=== PATIENT | male | born 1985 | race Caucasian/White ===

== ENCOUNTER 2018-11-29 08:10 | Emergency (ER) | payer OTHER ==
[2018-11-29 08:37] VITALS: BP 124/79
--- NOTE | 2018-11-29 09:14 | UC ---
Shoulder Pain HPI - HPI Summary HPI Summary: Pt presents with left shoulder pain. States yesterday at work was walking across beam, left hand extended over head holding overhead - slipped - states left shoulder dislocated - he reduced. Pt with persistent pain since. Pt with h/ o left shoulder dislocation. Discomfort since. no paresthesia. no weakness motrin yesterdy RHD Medications reviewed - History of Current Complaint Chief Complaint: UCUpperExtremity Stated Complaint: WC-LT SHOULDER INJURY Time Seen by Provider: 11/29/18 09:10 Hx Obtained From: Patient Pain Intensity: 4 - Allergies/Home Medications Allergies/Adverse Reactions: Allergies Allergy/AdvReac Type Severity Reaction Status Date / Time Penicillins Allergy Hives Verified 11/29/18 08:32 Home Medications: Home Medications Naproxen Sodium [Aleve] 2 tab PO BID PRN 11/29/18 [History Confirmed 11/29/18] PMH/Surg Hx/FS Hx/Imm Hx Previously Healthy: Yes - Surgical History Surgical History: Yes Surgery Procedure, Year, and Place: appy - Family History Known Family History: Positive: Non-Contributory - Social History Occupation: Employed Full-time Lives: With Family Alcohol Use: None Substance Use Type: None Smoking Status (MU): Heavy Every Day Tobacco Smoker Type: Cigarettes Amount Used/How Often: 1/2 PPD Review of Systems All Other Systems Reviewed And Are Negative: Yes Musculoskeletal: Positive: Other: - left shoulder Physical Exam - Summary Physical Exam Summary: Vital Signs Reviewed: Yes A+Ox3, mild discomfort Eyes: Conjunctiva Clear, MARYLOU. EOM intact and full ENT: Hearing grossly normal Neck: Positive: Supple Respiratory: Positive: No respiratory distress, No accessory muscle use + CTA throughout no w/r Cardiovascular: RRR nl s1, s2 no m/r CBT <2 sec 2+ radial/ulnar abd soft + BS nt/nd no guarding, no distension Musculoskeletal Exam: No spinous process pain + TTP anterior rim of left shoulder + full extension, abduction, internal/external rotation with mild discomfort anterior aspec + flex/ext elbow + pronate/supinate Neurological: Positive: Alert, + sensation throughout + deltoid patch 5/5 grasp/thumb up/ a ok Psychological: Positive: Normal Response To Family Skin: Positive: no rash, no ecchymosis Triage Information Reviewed: Yes Vital Signs: Initial Vital Signs Temp 98.7 F 11/29/18 08:33 Pulse 68 11/29/18 08:33 Resp 15 11/29/18 08:33 BP 124/79 11/29/18 08:33 Pulse Ox 100 11/29/18 08:33 Shoulder Course/Dx - Course Course Of Treatment: Pt present with left shoudler pain after reporting a dislocation and reduction at work. Pt with persisnte anterior rim pain RHD VSS distal CSM intact imaging - no acute process sling motrin/apap appt with Dr. Neumann 11:30am today -pt needs wc claim # paperwork complete - Differential Dx/Diagnosis Provider Diagnosis: Left shoulder pain Discharge - Sign-Out/Discharge Documenting (check all that apply): Patient Departure All imaging exams completed and their final reports reviewed: Yes - Discharge Plan Condition: Stable Disposition: HOME Patient Education Materials: Shoulder Dislocation (ED), Shoulder Sprain (ED) Forms: *Work Release Referrals: Curt Neumann MD [Medical Doctor] - (11:30am today 11/29/18) No Primary Care Phys,NOPCP [Primary Care Provider] - Additional Instructions: - wear sling for comfort and support - Okay to alternate ibuprofen (Advil, Motrin) and Tylenol every 3 hours for pain or fever. Take with food. Do NOT take for more than 4-5 days. - Apply ice (wrapped in a towel) 20 minutes at a time, 2-3 times a day - You have an appointment with Dr. Neumann - orthopedic doctor -today at 11:30am - please present 15 minutes early and bring your worker comp claim number with you - Billing Disposition and Condition Condition: STABLE Disposition: Home
== END 2018-11-29 10:24 | disposition home or self-care (01) ==
LOC: UCCORT 08:10
DX: M25.511 Pain in right shoulder (principal); F17.210 Nicotine dependence, cigarettes, uncomplicated; Z88.0 Allergy status to penicillin
CPT/HCPCS: 99202; G0463

== ENCOUNTER 2019-08-13 15:43 | Emergency (ER) | payer BC, OTHER ==
[2019-08-13 16:53] VITALS: BP 128/61
--- NOTE | 2019-08-13 17:39 | UC ---
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 Pt states it is mostly sinus symptoms and for 4 days could not hear out of his right ear. Pleasant 34 yo gentleman c/o cough, congestion, sinus pain not getting better. Sx started apprx 3 weeks ago. Reports that it happens every year at this time. R ear discomfort. No fever / chills. - History of Current Complaint Chief Complaint: UCGeneralIllness Stated Complaint: COLD SYMP Time Seen by Provider: 08/13/19 17:38 Hx Obtained From: Patient Pain Intensity: 0 - Allergy/Home Medications Allergies/Adverse Reactions: Allergies Allergy/AdvReac Type Severity Reaction Status Date / Time Penicillins Allergy Hives Verified 08/13/19 16:53 PMH/Surg Hx/FS Hx/Imm Hx Previously Healthy: Yes - Surgical History Surgical History: Yes Surgery Procedure, Year, and Place: appy - Family History Known Family History: Positive: Non-Contributory - Social History Alcohol Use: Rare Substance Use Type: None Smoking Status (MU): Heavy Every Day Tobacco Smoker Type: Cigarettes Amount Used/How Often: 1/2 PPD Review of Systems All Other Systems Reviewed And Are Negative: Yes Constitutional: Positive: Negative Skin: Positive: Negative Eyes: Positive: Negative ENT: Positive: Ear Ache, Nasal Discharge, Sinus Congestion, Other - see hpi Respiratory: Positive: Cough Cardiovascular: Positive: Negative Gastrointestinal: Positive: Negative Genitourinary: Positive: Negative Motor: Positive: Negative Neurovascular: Positive: Negative Musculoskeletal: Positive: Negative Neurological: Positive: Negative Psychological: Positive: Negative Is Patient Immunocompromised?: No Physical Exam Triage Information Reviewed: Yes Appearance: Well-Appearing, Well-Nourished Vital Signs: Initial Vital Signs Temp 98.2 F 08/13/19 16:49 Pulse 69 08/13/19 16:49 Resp 16 08/13/19 16:49 BP 128/61 08/13/19 16:49 Pulse Ox 98 08/13/19 16:49 Vital Signs Reviewed: Yes Eye Exam: Normal ENT: Positive: Pharyngeal erythema - mild redness, no sores / exudates mmm, Nasal congestion, TM dull, Other - R TM mild redness, c/w barotrauma. not infected. Both tm's dull, [place] Neck exam: Normal Neck: Positive: Supple Respiratory Exam: Other - occas fine exp wheeze bs equal. Respiratory: Positive: No respiratory distress, No accessory muscle use Cardiovascular Exam: Normal Cardiovascular: Positive: RRR, No Murmur, Pulses Normal, Brisk Capillary Refill Abdominal Exam: Normal Abdomen Description: Positive: Nontender Musculoskeletal Exam: Normal Neurological Exam: Normal - grossly nonfocal Psychological Exam: Normal - nad Skin Exam: Normal - no visible or reported rash Course/Dx - Course Course Of Treatment: Reviewed coa / tx plan. questions as posed answered to the best of my ability. - Diagnoses Provider Diagnosis: Sinusitis, Barotrauma, otic Discharge ED - Sign-Out/Discharge Documenting (check all that apply): Patient Departure All imaging exams completed and their final reports reviewed: No Studies - Discharge Plan Condition: Stable Disposition: HOME Prescriptions: Albuterol HFA INHALER* [Ventolin HFA Inhaler*] 1 - 2 puff INH Q4H PRN #1 mdi PRN Reason: Wheezing Azithromycin TAB* [Zithromax TAB (Z-MARCELLO) 250 mg #6 tabs] 2 tab PO .TODAY, THEN 1 DAILY #1 marcello Patient Education Materials: Sinusitis (ED), Wheezing (ED), Barotrauma (ED) Forms: *Work Release Referrals: No Primary Care Phys,NOPCP [Primary Care Provider] - [facility] [Outside] Additional Instructions: Follow up with a primary care physician when possible. Please seek medical attention for worse or new problems. Hydrate. - Billing Disposition and Condition Condition: STABLE Disposition: Home
== END 2019-08-13 18:11 | disposition home or self-care (01) ==
LOC: UCCORT 15:43
DX: J32.9 Chronic sinusitis, unspecified (principal); T70.0XXA Otitic barotrauma, initial encounter; Z88.0 Allergy status to penicillin; F17.210 Nicotine dependence, cigarettes, uncomplicated; X58.XXXA Exposure to other specified factors, initial encounter; Y92.9 Unspecified place or not applicable
CPT/HCPCS: 99212; G0463